=== PATIENT | female | born 1985 | race Caucasian/White ===

== ENCOUNTER 2019-06-08 21:19 | Emergency (ER) | payer OTHER ==
--- OUTSIDE RECORDS SUMMARY | 2019-06-08 21:33 | XMS REPORT | Continuity of Care Document ---
:1985 External Reference #:[id number] Author Name Jadyn Lyons M.D. Address [address] [place] [address], [address] [place] [address] Care Team Providers Name Role Phone Allegra Chadwick DO - Family Medicine Care Team Information Contracts Administrator [phone] Problems Active Problems Provider Date Mixed bipolar I disorder in partial remission Mahogany Mcdonough MD Onset: 2018 Bipolar disorder Mahogany Mcdonough MD Onset: 03/06/2019 Social History Type Date Description Comments Sex Unknown ETOH Use Rarely consumes alcohol Tobacco Use Start: Unknown Patient is a current smoker, smokes every day Recreational Drug Use Denies Drug Use Tobacco Use Start: Unknown Patient is a current One pack per day for smoker, smokes every day 16 years Smoking Status Reviewed: 02/06/19 Patient is a current One pack per day for smoker, smokes every day 16 years Allergies, Adverse Reactions, Alerts Active Allergies Reaction Severity Comments Date Wellbutrin hallucinations Severe 02/06/2019 Inactive Allergies NKDA 02/06/2019 Medications Active Medications SIG Qnty Indications Ordering Date Provider Cyclobenzaprine HCL 1 by mouth three 60tabs M65.4 Jadyn Lyons, 2019 10mg times a day as M.D. Tablets needed pain do not drive Medrol take 5tab po day 21tabs CHAPARRO Weeks 05/08/2019 4mg Tablets #1/#2 followed by 4tab day 3;then 3tab po day 4;and continue to decrease daily dose by 1tab until gone Quetiapine Fumarate 1 tabs by mouth 30tabs Mahogany Mcdonough MD 03/06/2019 100mg every night Tablets Venlafaxine HCL ER 1 by mouth every 90caps Mahogany Mcdonough MD 02/06/2019 150mg day Caps ER 24HR Omeprazole 1 by mouth every 90caps K21.9 Allegra Chadwick, 02/06/[address] arslan DO Paragard Intrauterine Allegra Chadwick, 02/06/2019 Copper Contraceptive DO T380a T380a IUD Vitamin D-1000 Maximum 1 by mouth every Unknown Strength day 25mcg (1000 Ut) Tablets Iron 1 by mouth bid Unknown 325(65Fe) mg Tablets Vitamin C 1 by mouth bid Unknown 500mg Chewtabs Vitamin B Complex 1 by mouth every Unknown Tablets day History Medications Quetiapine Fumarate take 4 tabs at 30tabs Mahogany Mcdonough MD 02/06/2019 - night for bipolar 03/06/2019 25mg Tablets disorder Medications Administered in Office Medication SIG Qnty Indications Ordering Provider Date Injection Dexamethasone Sodium Bharathi Montanez, DO 04/12/2019 Phosphate, 1 MG Injection Injection Dexamethasone Sodium Bharathi Montanez, DO 04/12/2019 Phosphate, 1 MG Injection Psychiatric Diag Eval Mahogany Mcdonough MD 03/06/2019 W/Medical Service Injection Immunizations CPT Code Status Date Vaccine Lot # [id number] Given 02/06/2019 Influenza Virus Vaccine, Quad, Preservative Free 6mo 24pp4 & up Vital Signs Date Vital Result Comment 05/12/2019 8:15am Weight 242.00 lb Weight 109.771 kg BMI (Body Mass Index) 40.3 kg/m2 Heart Rate 92 /min Body Temperature 98.0 F Respiratory Rate 15 /min Pain Level 10 Height 65 inches 5'5" Height in cm's 165.1 cm O2 % BldC Oximetry 98 % 04/12/2019 9:31am Heart Rate 119 /min Pain Level 4 O2 % BldC Oximetry 98 % Results Test Acquired Date Facility Test Result H/L Range Note Xray 05/12/2019 [facility] Spine, Cervical, <pending> [address] [place] [address] [phone] Hand Min 3 Views, RT <pending> Comprehensive Panel 03/29/2019 [facility] Sodium 139 mmol/L 136-[address] [place] [address] [phone] Potassium 4.6 mmol/L 3.5-5.2 Chloride 103 mmol/L 100-108 Co2 26 mmol/L 21-32 Glucose 74 mg/dL 70-100 BUN 9 mg/dL 7-21 Creatinine 0.6 mg/dL 0.6-1.3 1 Calcium 9.8 mg/dL 8.5-10.8 GFR >60 T Bili 0.3 mg/dL 0.0-1.2 T Protein 7.7 gm/dL 6.4-8.2 Albumin 4.5 gm/dL 3.4-4.8 Alk Phos 91 U/L 40-150 Alt (SGPT) 68 U/L High 0-55 Ast (Sgot) 37 U/L 5-37 Lipid Panel 03/29/2019 [facility] Cholesterol 159 mg/dL 120-[address] [place] [phone] Triglycerides 210 mg/dL High 0-149 HDL Cholesterol 40 mg/dL 40-60 Chol/HDL Ratio 4.0 <=4.4 2 LDL Direct 94 mg/dL 0-99 VLDL Calculated 42 Xray 03/13/2019 [facility] Hand Min 3 Views, <pending> [address] [place] [address] [phone] CBC W/No 02/06/2019 [facility] WBC 6.7 K/uL 4.8-10.[address] [place] [phone] RBC 4.65 M/uL 4.20-5.40 Hemoglobin 14.0 gm/dL 12.0-16.0 Hematocrit 40.5 % 36.0-48.0 MCV 87.1 fL 80.0-100.0 MCHC 34.5 % 30.0-36.5 MCH 30.1 pg 27.0-34.0 RDW 12.7 % 11.0-15.0 Platelet 212 K/uL 130-450 MPV 9.5 fL 6.0-12.0 Comprehensive Panel 02/06/2019 [facility] Sodium 141 mmol/L 136-[address] [place] [phone] Potassium 4.5 mmol/L 3.5-5.2 Chloride 104 mmol/L 100-108 Co2 26 mmol/L 21-32 Glucose 77 mg/dL 70-100 BUN 12 mg/dL 7-21 Creatinine 0.7 mg/dL 0.6-1.3 3 Calcium 10.0 mg/dL 8.5-10.8 GFR >60 T Bili 0.2 mg/dL 0.0-1.2 T Protein 7.9 gm/dL 6.4-8.2 Albumin 4.6 gm/dL 3.4-4.8 Alk Phos 95 U/L 40-150 Alt (SGPT) 89 U/L High 0-55 Ast (Sgot) 45 U/L High 5-37 Lipid Panel 02/06/2019 [facility] Cholesterol 179 mg/dL 120-200 [address] [place] [address] [phone] Triglycerides 320 mg/dL High 0-149 HDL Cholesterol 39 mg/dL Low 40-60 Chol/HDL Ratio 4.6 High <=4.4 4 LDL Direct 104 mg/dL High 0-99 VLDL Calculated 64 1 Normal Kidney Function or Mild Disease - GFR >OR= 60 Chronic Kidney Disease - GFR 15-59 Renal Failure - GFR < 15 GFR not calculated on patients under 18 years of age. 2 Cholesterol/HDL Ratio Interpretation Risk : 1/2 Avg Avg 2x Avg 3x Avg Male : 3.43 4.97 9.50 23.99 Female : 3.27 4.44 7.05 11.04 3 Normal Kidney Function or Mild Disease - GFR >OR= 60 Chronic Kidney Disease - GFR 15-59 Renal Failure - GFR < 15 GFR not calculated on patients under 18 years of age. 4 Cholesterol/HDL Ratio Interpretation Risk : 1/2 Avg Avg 2x Avg 3x Avg Male : 3.43 4.97 9.50 23.99 Female : 3.27 4.44 7.05 11.04 Procedures Date Code Description Status 05/12/2019 58483 X-Ray Hand Three Views Completed 05/12/2019 37809 X-Ray Spine Cervical Ap & Lateral Completed 04/12/201995524 Arthrocentesis Intermediate Joint/Bursa/Ganglion Cys Completed Inj/Drain 04/12/201964283 Inject Tendon/Ligament/Cyst Completed 03/13/2019 22371 X-Ray Hand Three Views Completed 03/06/2019 38607 Psychiatric Diag Eval W/Medical Service Completed Medical Devices Description No Information Available Encounters Type Date Location Provider Dx Diagnosis Office Visit 05/08/2019 Mirta Valenzuela M65.4 Radial styloid 1:30p Specialists DO Tarik tenosynovitis [de Quervain] M65.312 Trigger thumb, left thumb Office Visit 04/12/2019 Mirta Valenzuela M65.4 Radial styloid 9:20a Orthopaedic DO Tarik tenosynovitis [de Specialists Quervain] M65.312 Trigger thumb, left thumb M25.532 Pain in left wrist M25.542 Pain in joints of left hand Office Visit 03/29/2019 11:10a Mirta Allegra Emery F31.9 Bipolar disorder, Care M, DO unspecified R74.0 Nonspec elev of levels of transamns & lactic acid dehydrgnse E78.5 Hyperlipidemia, unspecified M65.4 Radial styloid tenosynovitis [de Quervain] M65.312 Trigger thumb, left thumb Office Visit 03/13/2019 8:00a Mirta Valenzuela M65.312 Trigger Specialists DO Tarik thumb, left thumb M65.4 Radial styloid tenosynovitis [de Quervain] Office Visit 02/27/2019 11:45a Mirta Allegra Emery M65.4 Radial styloid Care M, tenosynovitis [de Quervain] H00.14 Chalazion left upper eyelid E78.5 Hyperlipidemia, unspecified Office Visit 02/06/2019 1:00p Mirta Allegra Emery F31.76 Bipolar disorder, Care M, DO in full remis, most recent episode depress Z23 Encounter for immunization Z72.0 Tobacco use M65.4 Radial styloid tenosynovitis [de Quervain] Assessments Date Code Description Provider 05/12/2019 M65.4 Radial styloid tenosynovitis [de Quervain] Jadyn Lyons M.D. 05/12/2019 M65.312 Trigger thumb, left thumb Jadyn Lyons M.D. 05/12/2019 M54.12 Radiculopathy, cervical region Jadyn Lyons M.D. 05/08/2019 M65.4 Radial styloid tenosynovitis [de Quervain] Bharathi Montanez DO 05/08/2019 M65.312 Trigger thumb, left thumb Bharathi Montanez, DO 04/12/2019 M65.4 Radial styloid tenosynovitis [de Quervain] Bharathi Montanez, DO 04/12/2019 M65.312 Trigger thumb, left thumb Bharathi Nicolas Montanez, DO 04/12/2019 M25.532 Pain in left wrist Bharathi Nicolas Montanez, DO 04/12/2019 M25.542 Pain in joints of left hand Bharathi Montanez, DO 03/29/2019 E78.5 Hyperlipidemia, unspecified Apc and Endo Draw 03/29/2019 F31.9 Bipolar disorder, unspecified Allegra Chadwick, DO 03/29/2019 R74.0 Nonspecific elevation of levels of Allegra Chadwick, DO transaminase and lactic acid dehydrogenase [LDH] 03/29/2019 R74.0 Nonspecific elevation of levels of Apc and Endo Draw transaminase and lactic acid dehydrogenase [LDH] 03/29/2019 E78.5 Hyperlipidemia, unspecified Allegra Chadwick, DO 03/29/2019 M65.4 Radial styloid tenosynovitis [de Quervain] Allegra Chadwick , DO 03/29/2019 F31.9 Bipolar disorder, unspecified Apc and Endo Draw 03/29/2019 M65.312 Trigger thumb, left thumb Allegra Chadwick, DO 03/13/2019 M65.312 Trigger thumb, left thumb Bharathi Montanez, DO 03/13/2019 M65.4 Radial styloid tenosynovitis [de Quervain] Bharathi Montanez, DO 03/06/2019 F31.9 Bipolar disorder, unspecified Mahogany Mcdonough MD 02/27/2019 M65.4 Radial styloid tenosynovitis [de Quervain] Allegra Chadwick , DO 02/27/2019 H00.14 Chalazion left upper eyelid Allegra Chadwick, DO 02/27/2019 E78.5 Hyperlipidemia, unspecified Allegra Chadwick, DO 02/06/2019 F31.76 Bipolar disorder, in full remission, most Apc and Endo Draw recent episode depressed 02/06/2019 F31.76 Bipolar disorder, in full remission, most Allegra Chadwick , DO recent episode depressed 02/06/2019 Z23 Encounter for immunization Allegra Chadwick DO 02/06/2019 Z72.0 Tobacco use Allegra Chadwick DO 02/06/2019 K21.9 Gastro-esophageal reflux disease without Apc and Endo Draw esophagitis 02/06/2019 M65.4 Radial styloid tenosynovitis [de Quervain] Allegra Chadwick DO 02/06/2019 M65.4 Radial styloid tenosynovitis [de Quervain] Apc and Endo Draw Plan of Treatment Future Appointment(s):09/29/2019 1:30 pm - Allegra Chadwick DO at [facility] Care Functional Status Description No Information Available Mental Status Description No Information Available Referrals Refer to Reason for Referral Status Appt Date Psychiatric Wellness Care [facility] Bipolar disorder Closed [address] [place] [address] [phone] Bharathi Montanez DO tenosynovitis Scheduled 03/13/2019 [address], [address] [place] [address] [phone] Mahogany Mcdonough MD Bipolar disorder Scheduled 03/01/2019 [address] [facility], [address] [place] [address] [phone]
--- OUTSIDE RECORDS SUMMARY | 2019-06-08 21:33 | XMS REPORT | Continuity of Care Document ---
:1985 Author Organization [facility] Support Name Relationship Address Phone DIONICIO VICK significant other [address] [facility] [place] [address] Allergies and Intolerances No Known Allergies Medications RxNorm Medication Dose Route Instructions Start Date End Date Status 3863041 Acetaminophen 325 MG 1 tab oral orally every 6 05/07/2019 Active / Oxycodone hours as needed. Hydrochloride 5 MG (as needed for Oral Tablet pain; MDD= 4 tablets) Medications At Time Of Discharge RxNorm Medication Dose Route Instructions Start Date End Date Status 5035035 Acetaminophen 325 MG 1 tab oral orally every 6 05/07/2019 Active / Oxycodone hours as needed. Hydrochloride 5 MG (as needed for Oral Tablet pain; MDD= 4 tablets) Problems No Data in the system Procedures No data in the system Results Radiology Results Order: MRI CERVICAL SPINE W/O CONTRASTExam Completion Date:05/27/2019 07: 7:48 AM MR CERVICAL SPINE WITHOUT CONTRAST CLINICAL INFORMATION: -- Cervical radiculopathy pain in both hands after carpal tunnel surgery. Pain radiates into the arms. COMPARISON: None. TECHNIQUE: Multiplanar multi-sequence MR imaging of the cervical spine was performed without intravenous contrast. FINDINGS: There is mild decrease in intervertebral body disc heightand osteophyte formation. No compression deformity. Straightening of the without spondylolisthesis. Bone marrow signal appears normal. The cervical spinal cord demonstrates normal caliber and signal. Visualized aspects of the posterior fossa appear normal. Prevertebral and paravertebral soft tissues appear normal. C2-C3: No focal disc herniation, spinal canal stenosis, or neural foraminal narrowing. C3-C4 : No focal disc herniation or spinal canal stenosis. Minimal bilateral uncovertebral jointhypertrophy resulting in minimal LEFT and no significant RIGHT neural foraminal narrowing. C4-C5:No focal disc herniation or spinal canal stenosis. Minimal bilateral uncovertebral joint hypertrophyresulting in minimal LEFT and no significant RIGHT neural foraminal narrowing. C5-C6: Minimal broad-based posterior disc bulge eccentric to the LEFT. Mild bilateral uncovertebral joint hypertrophy. The spinal canal is lower limits of normal in size. No significant neural foraminal narrowing. C6-C7: No focal disc herniation or spinal canal stenosis. The spinal canal is lower limits of normal in size. No significant neural foraminal narrowing. C7-T1: No focal disc herniation, spinal canal stenosis, or neural foraminal narrowing. The T1-T2 level is only partially imaged in sagittal plane and not fully evaluated, although it appears within normal limits. IMPRESSION: Minimal multilevel cervical spondylosis, as described in detail above. No focal disc herniation or spinal canalstenosis. Minimal LEFT neural foraminal narrowing at C3-4 and C4-5. The cervical and upper thoracic spinal cord is normal in signal intensity and caliber. END OF IMPRESSION [facility] submits Radiology results to [facility] and [facility] then provides those same results to [facility]. All results are available to [facility] and [facility] provider portal users. [facility] DICOM images are available to the [facility] provider portal users only. [facility] DICOM images are not available to the [facility] provider portal users. There is no current [facility] cross-[facility] functionality allowing images to be available through the [facility] to [facility] connectivity. Electronically signed By: Conner Cruz M.D. Read By: CONNER CRUZ Date: 05/28/2019 12:10 Social History Code Code System Social History Observation Description Dates Observed 126792649 SNOMED CT Current Smoking Status Never smoker UNK AdministrativeGender Sex Assigned At Unknown Vital Signs No data in the system Goals Section No data in the system Health Concerns No data in the systemEncounter Diagnosis Date Code Code System Diagnosis Status M50.11 ICD10 CERV DISC D/O RADICULOPATHY HIGH CE Active Advance Directives *RHIO - CONSENT IS YES Directive Type Effective Date Medical Equipment Technician Notes Supporting Document Name Address Phone No Directive Type 03/29/2019 9:52:42 Not Specified Not Specified Not Specified None No specified AM Encounters Encounter Diagnosis Location Date CERV DISC D/O RADICULOPATHY HIGH CE [facility] 05/27/2019 Family History Family history not obtained Functional Status No data in the system Immunizations No data in the system Medical Equipment No data in the system Mental Status No data in the system Assessment and Plan Assessments No data in the systemPlan Of Treatment No data in the systemPending Tests Test Start Date MRI ABDOMEN WITH - W/O CONTRAST 05/27/2019 07:58 Hospital Discharge Instructions No data in the system Reason for Visit Reason for Visit MRI
--- OUTSIDE RECORDS SUMMARY | 2019-06-08 21:33 | XMS REPORT | Continuity of Care Document ---
:1985 External Reference #:[id number] Author Name Jadyn Lyons M.D. Address [address] [place] [address], [address] [place] [address] Care Team Providers Name Role Phone Allegra Chadwick DO - Family Medicine Care Team Information Erp Developer [phone] Problems Active Problems Provider Date Mixed bipolar [...] CPT Code Status Date Vaccine Lot # [id number] Given 02/06/2019 Influenza Virus Vaccine, Quad, Preservative [...] Test Result H/L Range Note Xray 05/12/2019 [facility] Spine, Cervical, <pending> [address] [place] [address] [phone] Hand Min 3 Views, RT <pending> Comprehensive Panel 03/29/2019 [facility] Sodium 139 mmol/L 136-[address] [place] [address] [phone] Potassium 4.6 mmol/L 3.5-5.2 Chloride 103 mmol/L [...] (Sgot) 37 U/L 5-37 Lipid Panel 03/29/2019 [facility] Cholesterol 159 mg/dL 120-[address] [place] [phone] Triglycerides 210 mg/dL High 0-149 HDL Cholesterol 40 mg/dL 40-60 Chol/HDL Ratio 4.0 <=4.4 2 LDL Direct 94 mg/dL 0-99 VLDL Calculated 42 Xray 03/13/2019 [facility] Hand Min 3 Views, <pending> [address] [place] [address] [phone] CBC W/No 02/06/2019 [facility] WBC 6.7 K/uL 4.8-10.[address] [place] [phone] RBC 4.65 M/uL 4.20-5.40 Hemoglobin 14.0 gm/dL 12.0-16.0 Hematocrit 40.5 % 36.0-48.0 MCV 87.1 fL 80.0-100.0 MCHC 34.5 % 30.0-36.5 MCH 30.1 pg 27.0-34.0 RDW 12.7 % 11.0-15.0 Platelet 212 K/uL 130-450 MPV 9.5 fL 6.0-12.0 Comprehensive Panel 02/06/2019 [facility] Sodium 141 mmol/L 136-[address] [place] [address] [phone] Potassium 4.5 mmol/L 3.5-5.2 Chloride 104 mmol/L [...] 45 U/L High 5-37 Lipid Panel 02/06/2019 [facility] Cholesterol 179 mg/dL 120-200 [address] [place] [address] [phone] Triglycerides 320 mg/dL High 0-149 HDL Cholesterol [...] 11.04 Procedures Date Code Description Status 05/12/2019 80064 X-Ray Hand Three Views Completed 05/12/2019 72454 X-Ray Spine Cervical Ap & Lateral Completed 04/12/201962273 Arthrocentesis Intermediate Joint/Bursa/Ganglion Cys Completed Inj/Drain 04/12/201974291 Inject Tendon/Ligament/Cyst Completed 03/13/2019 25527 X-Ray Hand Three Views Completed 03/06/2019 77661 Psychiatric Diag Eval W/Medical Service Completed Medical Devices Description No Information Available Encounters Type Date Location Provider Dx Diagnosis Office Visit 05/12/2019 [facility] Jadyn Lyons M65.4 Radial styloid 8:00a Specialists Bj tenosynovitis [de Quervain] M65.312 Trigger thumb, left thumb M54.12 Radiculopathy, cervical region Office Visit 05/08/2019 Mirta Valenzuela M65.4 Radial styloid 1:30p Orthopa[facility] Tarik, DO tenosynovitis [de Specialists Quervain] M65.312 Trigger thumb, left thumb Office Visit 04/12/2019 Mirta Valenzuela M65.4 Radial styloid 9:20a Orthopaedic Valentino, DO tenosynovitis [de Specialists Quervain] M65.312 Trigger thumb, left thumb M25.532 Pain in left wrist M25.542 Pain in joints of left hand Office Visit 03/29/2019 11:10a Allegra Urbina F31.9 Bipolar disorder, Care M, DO unspecified R74.0 Nonspec elev of levels of transamns & lactic acid dehydrgnse E78.5 Hyperlipidemia, unspecified M65.4 Radial styloid tenosynovitis [de Quervain] M65.312 Trigger thumb, left thumb Office Visit 03/13/2019 8:00a [facility] Bharathi Valenzuela M65.312 Trigger Specialists Tarik, thumb, left thumb M65.4 Radial styloid tenosynovitis [de Quervain] Office Visit 02/27/2019 11:45a Allegra Urbina M65.4 Radial styloid Care M, tenosynovitis [de Quervain] H00.14 Chalazion left upper eyelid E78.5 Hyperlipidemia, unspecified Office Visit 02/06/2019 1:00p [facility] Allegra Emery F31.76 Bipolar disorder, Care M, [...] styloid tenosynovitis [de Quervain] Bharathi Montanez, DO 05/08/2019 M65.312 Trigger thumb, left thumb Bharathi Montanez, DO 04/12/2019 M65.4 Radial styloid tenosynovitis [de Quervain] Bharathi Montanez, DO 04/12/2019 M65.312 Trigger thumb, left thumb Bharathi Montanez, DO 04/12/2019 M25.532 Pain in left wrist Bharathi Montanez, DO 04/12/2019 M25.542 Pain in joints [...] DO 02/27/2019 E78.5 Hyperlipidemia, unspecified Allegra Chadwick, 02/06/2019 F31.76 Bipolar disorder, in full remission, most Apc and Endo Draw recent episode depressed 02/06/2019 F31.76 Bipolar disorder, in full remission, most Allegra Chadwick DO recent episode depressed 02/06/2019 Z23 Encounter for immunization Allegra Chadwick, 02/06/2019 Z72.0 Tobacco use Allegra Chadwick, 02/06/2019 K21.9 Gastro-esophageal reflux disease without Apc and Endo Draw esophagitis 02/06/2019 M65.4 Radial styloid tenosynovitis [de Quervain] Allegra Chadwick DO 02/06/2019 M65.4 Radial styloid tenosynovitis [de Quervain] Apc and Endo Draw Plan of Treatment Future Appointment(s):09/29/2019 1:30 pm - Allegra Chadwick DO at [facility] Care Functional Status Description No Information Available Mental Status Description No Information Available Referrals Refer to Dr Reason for Referral Status Appt Date Psychiatric Wellness Care [facility] Bipolar disorder Closed [address] [place] [address] [phone] Bharathi Montanez DO tenosynovitis Scheduled 03/13/2019 [address] [facility], [address] [place] [address] [phone] Mahogany Mcdonough MD Bipolar disorder Scheduled 03/01/2019 [address] [facility], [address] [place] [address] [phone]
--- OUTSIDE RECORDS SUMMARY | 2019-06-08 21:33 | XMS REPORT | Continuity of Care Document ---
:1985 Author Organization [facility] Support Name Relationship Address Phone DIONICIO VICK significant other [address] [facility] [place] [address] Allergies and Intolerances No Known Allergies Medications RxNorm Medication Dose Route Instructions Start Date End Date Status 5577219 Acetaminophen 325 MG 1 tab oral orally every 6 05/07/2019 Active / Oxycodone hours as needed. Hydrochloride 5 MG (as needed for Oral Tablet pain; MDD= 4 tablets) Medications At Time Of Discharge RxNorm Medication Dose Route Instructions Start Date End Date Status 9811185 Acetaminophen 325 MG 1 tab oral orally every 6 05/07/2019 Active / Oxycodone hours as needed. Hydrochloride 5 MG (as needed for Oral Tablet pain; MDD= 4 tablets) Problems No Data in the system Procedures No data in the system Results Laboratory Results Order: RHEUMATOID FACTOR Specimen Source: Body Site: Legend: (G,H) = High, (GG,HH,CH,#H) = Above High Threshold, (#,L) = Low, (##,CL,#L,LL) = Below Low Threshold, (C,CC,CA,#A,A) = Abnormal LOINC Test Result Flag Range Units Date 1RHEUMATOID FACTOR NEGATIVE NEGATIVE 05/12/2019 09:45 1Methodology: Latex Agglutination Performing Lab Footnotes:[facility] - [id number] - [address] [place] [address] [place]LE ROSS Reference Laboratory Results Order: JUANA - Antinuclear Antibodies, IFA(3 Days to Results) Specimen Source: Body Site: LOINC Code Test Result Flag Range Units Date 5048-4 1Nuclear Ab Negative 05/12/2019 9:45:00 AM Note: Negative <1:80 Borderline 1:80 Positive >1:80 Performing Lab Footnotes:[facility] [place] - [address] [facility] [place] [id number] LILLIAM MENDOSAYES1 Order: HLA B27 [SO] Specimen Source: Body Site: LOINC Code Test Result Flag Range Units Date 68022-6 1HLA-B27 Negative 05/12/2019 9:45:00 AM Note: HLA-B*27 Negative B27 allele interpretation for all loci based on IMGT/HLA database version 3.35 This test was developed and its performance characteristics determined by [facility]. It has not been cleared or approved by the Food and Drug Administration. [facility] CLIA ID Number [id number] . This test was performed using PCR (Polymerase Chain Reaction)/SSOP (Sequence Specific Oligonucleotide Probes) technique. SBT (Sequence Based Typing) and/or SSP (Sequence Specific Primers) may be used as supplemental methods when necessary. Please contact HLA Customer Service at if you have any questions. . Director of HLA Laboratory Dr Jon Doty, PhD Performing Lab Footnotes:[facility] [place] [facility] [address] [facility] [place] [id number] JON RAMOS Order: LYME PCR (csf, bodyfluid, blood) [SO] Specimen Source: Body Site : LOINC Code Test Result Flag Range Units Date 4991-6 1Borrelia burgdorferi Negative Negative 05/12/2019 DNA 9:45:00 AM Note: No B. burgdorferi DNA Detected. . A negative PCR result for Borrelia burgdorferi on a blood sample does not eliminate the possibility of Lyme disease. CDC recommends that two-tiered serological testing in conjunction with clinical evaluation be used as the primary method of diagnosis. . This test was developed and its performance characteristics determined by [facility]. It has not been cleared or approved by the Food and Drug Administration. The FDA has determined that such clearance or approval is not necessary. Performing Lab Footnotes:[facility] [place] - [address] [place], [place] [id number] HENRIETTA CANTU1 Social History Code Code System Social History Observation Description Dates Observed 035167263 SNOMED CT Current Smoking Status Never smoker UNK AdministrativeGender Sex Assigned At Unknown Vital Signs No data in the system Goals Section No data in the system Health Concerns No data in the systemEncounter Diagnosis Date Code Code System Diagnosis Status M65.4 ICD10 RADIAL STYLOID TENOSYNOVITIS Active Advance Directives *RHIO - CONSENT IS YES Directive Type Effective Date Manager Cosmetic Notes Supporting Document Name Address Phone No Directive Type 03/29/2019 9:52:42 Not Specified Not Specified Not Specified None No specified AM Encounters Encounter Diagnosis Location Date RADIAL STYLOID TENOSYNOVITIS [facility] 05/12/2019 Family History Family history not obtained Functional Status No data in the system Immunizations No data in the system Medical Equipment No data in the system Mental Status No data in the system Assessment and Plan Assessments No data in the systemPlan Of Treatment No data in the systemPending Tests No data in the system Hospital Discharge Instructions No data in the system Reason for Visit No data in the system
--- OUTSIDE RECORDS SUMMARY | 2019-06-08 21:33 | XMS REPORT | Continuity of Care Document ---
:1985 External Reference #:[id number] Author Name Bharathi Montanez DO Address [address] [facility], [address] [place] [address] Care Team Providers Name Role Phone Allegra Chadwick DO - Family Medicine Care Team Information Process Treater Problems Active Problems Provider Date Mixed bipolar [...] Medications Active Medications SIG Qnty Indications Ordering Provider Date Quetiapine Fumarate 1 tabs by mouth 30tabs Mahogany Mcdonough MD 03/06/2019 100mg every night Tablets Venlafaxine HCL ER 1 by mouth 90caps Mahogany Mcdonough MD 02/06/2019 150mg every day Caps ER 24HR Omeprazole 1 by mouth 90caps K21.9 Allegra Chadwick, 02/06/[address] every day DO Paragard Intrauterine Allegra Chadwick, 02/06/2019 Copper Contraceptive DO T380a T380a IUD Vitamin D-1000 Maximum 1 by mouth Unknown Strength every day 25mcg (1000 Ut) Tablets Iron 1 by mouth bid Unknown 325(65Fe) mg Tablets Vitamin C 1 by mouth bid Unknown 500mg Chewtabs Vitamin B Complex 1 by mouth Unknown Tablets every day History Medications Quetiapine Fumarate take 4 tabs at 30tabs aMhogany Mcdonough MD 02/06/2019 - night for bipolar 03/06/2019 25mg Tablets disorder Medications Administered in Office Medication SIG Qnty Indications Ordering Provider Date Psychiatric Diag Eval W/Medical Mahogany Mcdonough MD 03/06/2019 Service Injection Immunizations CPT Code Status Date Vaccine Lot # [id number] Given 02/06/2019 Influenza Virus Vaccine, Quad, Preservative Free 6mo 24pp4 & up Vital Signs Date Vital Result Comment 04/12/2019 9:31am Heart Rate 119 /min Pain Level 4 O2 % BldC Oximetry 98 % 03/29/2019 11:23am Weight 242.38 lb Weight 109.941 kg BMI (Body Mass Index) 40.3 kg/m2 BP Systolic 124 mmHg BP Diastolic 80 mmHg Heart Rate 103 /min Body Temperature 96.7 F Respiratory Rate 18 /min Height 65 inches 5'5" Height in cm's 165.1 cm O2 % BldC Oximetry 96 % Results Test Acquired Date Facility Test Result H/L Range Note Comprehensive Panel 03/29/2019 [facility] Sodium 139 mmol/L 136-[address] [place] [id number] [phone] Potassium 4.6 mmol/L 3.5-5.2 Chloride 103 mmol/L [...] (Sgot) 37 U/L 5-37 Lipid Panel 03/29/2019 [facility] Cholesterol 159 mg/dL 120-200 [address] [place] [address] [phone] Triglycerides 210 mg/dL High 0-149 HDL Cholesterol 40 mg/dL 40-60 Chol/HDL Ratio 4.0 <=4.4 2 LDL Direct 94 mg/dL 0-99 VLDL Calculated 42 Xray 03/13/2019 [facility] Hand Min 3 Views, <pending> [address] [place] [address] [phone] CBC W/No 02/06/2019 [facility] WBC 6.7 K/uL 4.8-10.8 Diff [address] [place], [place] [id number] [phone] RBC 4.65 M/uL 4.20-5.40 Hemoglobin 14.0 gm/dL 12.0-16.0 Hematocrit 40.5 % 36.0-48.0 MCV 87.1 fL 80.0-100.0 MCHC 34.5 % 30.0-36.5 MCH 30.1 pg 27.0-34.0 RDW 12.7 % 11.0-15.0 Platelet 212 K/uL 130-450 MPV 9.5 fL 6.0-12.0 Comprehensive Panel 02/06/2019 [facility] Sodium 141 mmol/L 136-145 [address] [place] [address] [phone] Potassium 4.5 mmol/L 3.5-5.2 Chloride 104 mmol/L [...] 45 U/L High 5-37 Lipid Panel 02/06/2019 [facility] Cholesterol 179 mg/dL 120-[address] [place] [address] [phone] Triglycerides 320 mg/dL High 0-149 HDL Cholesterol [...] 7.05 11.04 Procedures Date Code Description Status 04/12/2019 46846 Arthrocentesis Intermediate Joint/Bursa/Ganglion Cys Completed Inj/Drain 03/13/2019 64919 X-Ray Hand Three Views Completed 03/06/2019 35673 Psychiatric Diag Eval W/Medical Service Completed Medical Devices Description No Information Available Encounters Type Date Location Provider Dx Diagnosis Office Visit 03/29/2019 Allegra Urbina, F31.9 Bipolar disorder, 11:10a Care DO unspecified R74.0 Nonspec elev of levels of transamns & lactic acid dehydrgnse E78.5 Hyperlipidemia, unspecified M65.4 Radial styloid tenosynovitis [de Quervain] M65.312 Trigger thumb, left thumb Office Visit 03/13/2019 8:00a [facility] Bharathi Valenzuela M65.312 [facility] DO Tarik thumb, left thumb M65.4 Radial styloid tenosynovitis [de Quervain] Office Visit 02/27/2019 11:45a Allegra Urbina M65.4 Radial styloid Care DO Woody tenosynovitis [de Quervain] H00.14 Chalazion left upper eyelid E78.5 Hyperlipidemia, unspecified Office Visit 02/06/2019 1:00p Allegra Urbina F31.76 Bipolar disorder, Care Woody DO in full remis, most recent episode depress Z23 Encounter for immunization Z72.0 Tobacco use M65.4 Radial styloid tenosynovitis [de Quervain] Assessments Date Code Description Provider 04/12/2019 M65.4 Radial styloid tenosynovitis [de Quervain] Bharathi Montanez, DO 04/12/2019 M65.312 Trigger thumb, left thumb Bharathi Montanez, DO 03/29/2019 E78.5 Hyperlipidemia, unspecified [...] [de Quervain] Allegra Chadwick , DO 03/29/2019 M65.312 Trigger thumb, left thumb Allegra Chadwick, DO 03/29/2019 F31.9 Bipolar disorder, unspecified Apc and Endo Draw 03/13/2019 M65.312 Trigger thumb, left thumb Bharathi [...] 02/06/2019 Z23 Encounter for immunization Allegra Chadwick, DO 02/06/2019 Z72.0 Tobacco use Allegra Chadwick DO 02/06/2019 K21.9 Gastro-esophageal reflux disease without Apc and Endo Draw esophagitis 02/06/2019 M65.4 Radial styloid tenosynovitis [de Quervain] Allegra Chadwick DO 02/06/2019 M65.4 Radial styloid tenosynovitis [de Quervain] Apc and Endo Draw Plan of Treatment Future Appointment(s):09/29/2019 1:30 pm - Allegra Chadwick DO at [facility] Care Functional Status Description No Information Available Mental Status Description No Information Available Referrals Refer to Reason for Referral Status Appt Date [facility] Bipolar disorder Closed [address] [place] [phone] Bharathi Montanez DO tenosynovitis Scheduled 03/13/2019 [address] [facility], [address] [place] [address] [phone] Mahogany Mcdonough MD Bipolar disorder Scheduled 03/01/2019 [address] [facility], [address] [place] [address] [phone]
--- OUTSIDE RECORDS SUMMARY | 2019-06-08 21:33 | XMS REPORT | Continuity of Care Document ---
:1985 Author Organization [facility] Support Name Relationship Address Phone DIONICIO VICK significant other [address] [place] [address] Allergies and Intolerances No Known Allergies Medications RxNorm Medication Dose Route Instructions Start Date End Date Status 5063814 Acetaminophen 325 MG 1 tab oral orally every 6 05/07/2019 Active / Oxycodone hours as needed. Hydrochloride 5 MG (as needed for Oral Tablet pain; MDD= 4 tablets) Medications At Time Of Discharge RxNorm Medication Dose Route Instructions Start Date End Date Status 1171993 Acetaminophen 325 MG 1 tab oral orally every 6 05/07/2019 Active / Oxycodone hours as needed. Hydrochloride 5 MG (as needed for Oral Tablet pain; MDD= 4 tablets) Problems No Data in the system Procedures No data in the system Results Radiology Results Order: FINGER OR FINGERS LTExam Completion Date:05/06/2019 22: 12:02 AM CLINICAL INFORMATION: thumb -- INJURY, UNSPECIFIED COMPARISON: None.PROCEDURE: Frontal, lateral, and oblique views. FINDINGS/IMPRESSION: Flexion of the distal phalanx of thumb. No acute fracture, subluxation, or dislocation is seen. END OF IMPRESSION [facility] submits Radiology results to [facility] and [facility] then provides those same results to [facility]. All results are available to [facility] and [facility] provider portal users. [facility] DICOM images are available to the [facility] provider portal users only. [facility] DICOM images are not available to [facility] provider portal users. There is no current [facility] cross-[facility] functionality allowing images to be available through the [facility] to [facility] connectivity. Electronically signed By : Duane Grady M.D. Read By: DUANE GRADY Date: 05/07/2019 08:25 Social History Code Code System Social History Description Dates Observed Observation [id number] SNOMED CT Current Smoking Current some day Status smoker UNK AdministrativeGender Sex Assigned At Unknown Vital Signs Code Code System Vitals Value Date 8310-5 LOINC Body Temperature 98.8 [degF] 05/06/2019 8865-8 LOINC Pulse Rate 105 {beats}/min 05/06/2019 9279-1 LOINC Respiratory Rate 19 /min 05/06/2019 70587-9 LOINC O2% BldC Oximetry 99 % 05/06/2019 8480-6 LOINC BP Systolic 151 mm[Hg] 05/06/2019 8462-4 LOINC BP Diastolic 93 mm[Hg] 05/06/2019 8302-2 LOINC Height 63 [in_i] 05/06/2019 23333-4 LOINC Weight 100 kg 05/06/2019 3140-1 LOINC Body surface area Derived from formula 2.02 m2 05/06/2019 09738-7 LOINC BMI (Body Mass Index) 39 kg/m2 05/06/2019 Goals Section No data in the system Health Concerns No data in the systemEncounter Diagnosis Date Code Code System Diagnosis Status M65.4 ICD10 RADIAL STYLOID TENOSYNOVITIS Active Advance Directives *RHIO - CONSENT IS YES Directive Type Effective Date Housemaid Notes Supporting Document Name Address Phone No Directive Type 03/29/2019 9:52:42 Not Specified Not Specified Not Specified None No specified AM Encounters Encounter Diagnosis Location Date RADIAL STYLOID TENOSYNOVITIS [facility] 05/06/2019 Family History Family history not obtained Functional Status Code Functional Condition Code System Date Status Obese SNOMED CT 05/06/2019 Active Independent adls SNOMED CT 05/07/2019 Active Appears well nourished/hydrated SNOMED CT 05/06/2019 Active Immunizations No data in the system Medical Equipment No data in the system Mental Status Code Cognitive Condition Code System Date Status Moderate distress SNOMED CT 05/06/2019 Active Oriented x [address] 05/07/[address] 05/06/[address] 05/06/2019 Active No acute distress SNOMED CT 05/07/2019 Active Assessment and Plan Assessments No data in the systemPlan Of Treatment No data in the systemPending Tests No data in the system Hospital Discharge Instructions No data in the system Reason for Visit Reason for Visit Hand Injury
--- OUTSIDE RECORDS SUMMARY | 2019-06-08 21:33 | XMS REPORT | Continuity of Care Document ---
:1985 External Reference #:[id number] Author Name Jadyn Lyons M.D. 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 Cyclobenzaprine HCL 1 by mouth three 60tabs [...] 04/12/2019 Phosphate, 1 MG Injection Psychiatric Diag Hollieal Mahogany Mcdonough MD 03/06/2019 W/Medical Service Injection Immunizations CPT Code Status Date Vaccine Lot # [id number] Given 02/06/2019 Influenza Virus Vaccine, Quad, Preservative [...] Date Facility Test Result H/L Range Note Rheumatoid 05/12/2019 [facility] Rheumatoid NEGATIVE Negative Factor-RF [phone] Factor RF Methodology Methodology: Lat <SEE NOTE> 1 Laboratory test 05/12/2019 [facility] - Antinuclear Negative L 2 finding [phone] Antibodies, Ifa(3 Days Lyme PCR (csf, bodyfluid, blood) [So] Negative L Negative 3 Hla B27 [So] Negative L 4 Xray 05/12/2019 [facility] Spine, Cervical, 2 Or 3 < pending> [address] [place] [address] [phone] Hand Min 3 Views, RT <pending> Comprehensive Panel 03/29/2019 [facility] Sodium 139 mmol/L 136-145 [address] [place] [address] [phone] Potassium 4.6 mmol/L 3.5-5.2 Chloride 103 mmol/L 100-108 Co2 26 mmol/L 21-32 Glucose 74 mg/dL 70-100 BUN 9 mg/dL 7-21 Creatinine 0.6 mg/dL 0.6-1.3 5 Calcium 9.8 mg/dL 8.5-10.8 GFR >60 T Bili 0.3 mg/dL 0.0-1.2 T Protein 7.7 gm/dL 6.4-8.2 Albumin 4.5 gm/dL 3.4-4.8 Alk Phos 91 U/L 40-150 Alt (SGPT) 68 U/L High 0-55 Ast (Sgot) 37 U/L 5-37 Lipid Panel 03/29/2019 [facility] Cholesterol 159 mg/dL 120-200 [address] [place] [address] [phone] Triglycerides 210 mg/dL High 0-149 HDL Cholesterol 40 mg/dL 40-60 Chol/HDL Ratio 4.0 <=4.4 6 LDL Direct 94 mg/dL 0-99 VLDL Calculated 42 Xray 03/13/2019 [facility] Hand Min 3 Views, <pending> [address] [place], [place] [address] [phone] CBC W/No 02/06/2019 [facility] WBC 6.7 K/uL 4.8-10.8 Diff [address] [place] [address] [phone] RBC 4.65 M/uL 4.20-5.40 Hemoglobin 14.0 gm/dL 12.0-16.0 Hematocrit 40.5 % 36.0-48.0 MCV 87.1 fL 80.0-100.0 MCHC 34.5 % 30.0-36.5 MCH 30.1 pg 27.0-34.0 RDW 12.7 % 11.0-15.0 Platelet 212 K/uL 130-450 MPV 9.5 fL 6.0-12.0 Comprehensive Panel 02/06/2019 [facility] Sodium 141 mmol/L 136-145 [address] [place] [address] [phone] Potassium 4.5 mmol/L 3.5-5.2 Chloride 104 mmol/L 100-108 Co2 26 mmol/L 21-32 Glucose 77 mg/dL 70-100 BUN 12 mg/dL 7-21 Creatinine 0.7 mg/dL 0.6-1.3 7 Calcium 10.0 mg/dL 8.5-10.8 GFR >60 T Bili 0.2 mg/dL 0.0-1.2 T Protein 7.9 gm/dL 6.4-8.2 Albumin 4.6 gm/dL 3.4-4.8 Alk Phos 95 U/L 40-150 Alt (SGPT) 89 U/L High 0-55 Ast (Sgot) 45 U/L High 5-37 Lipid Panel 02/06/2019 [facility] Cholesterol 179 mg/dL 120-200 [address] [place], [place] [id number] [phone] Triglycerides 320 mg/dL High 0-149 HDL Cholesterol 39 mg/dL Low 40-60 Chol/HDL Ratio 4.6 High <=4.4 8 LDL Direct 104 mg/dL High 0-99 VLDL Calculated 64 1 Methodology: Latex Agglutination 2 Negative <1:80 Borderline 1:80 Positive >1:80 3 No B. burgdorferi DNA Detected. . A negative PCR result for Borrelia burgdorferi on a blood sample does not eliminate the possibility of Lyme disease. CDC recommends that two-tiered serological testing in conjunction with clinical evaluation be used as the primary method of diagnosis. . This test was developed and its performance characteristics determined by [facility]. It has not been cleared or approved by the Food and Drug Administration. The FDA has determined that such clearance or approval is not necessary. 4 HLA-B*27 Negative B27 allele interpretation for all loci based on IMGT/HLA database version 3.35 This test was developed and its performance characteristics determined by [facility]. It has not been cleared or approved by the Food and Drug Administration. [facility] CLIA ID Number [id number] . This test was performed using PCR (Polymerase Chain Reaction)/SSOP (Sequence Specific Oligonucleotide Probes) technique. SBT (Sequence Based Typing) and/or SSP (Sequence Specific Primers) may be used as supplemental methods when necessary. Please contact [facility] Customer Service at if you have any questions. . Director of HLA Laboratory Dr Jon Doty, PhD 5 Normal Kidney Function or Mild Disease - GFR >OR= 60 Chronic Kidney Disease - GFR 15-59 Renal Failure - GFR < 15 GFR not calculated on patients under 18 years of age. 6 Cholesterol/HDL Ratio Interpretation Risk : 1/2 Avg Avg 2x Avg 3x Avg Male : 3.43 4.97 9.50 23.99 Female : 3.27 4.44 7.05 11.04 7 Normal Kidney Function or Mild Disease - GFR >OR= 60 Chronic Kidney Disease - GFR 15-59 Renal Failure - GFR < 15 GFR not calculated on patients under 18 years of age. 8 Cholesterol/HDL Ratio Interpretation Risk : 1/2 Avg Avg 2x Avg 3x Avg Male : 3.43 4.97 9.50 23.99 Female : 3.27 4.44 7.05 11.04 Procedures Date Code Description Status 05/12/2019 36474 X-Ray Hand Three Views Completed 05/12/2019 61112 X-Ray Spine Cervical Ap & Lateral Completed 04/12/2019 81660 Arthrocentesis Intermediate Joint/Bursa/Ganglion Cys Completed Inj/Drain 04/12/2019 71642 Inject Tendon/Ligament/Cyst Completed 03/13/2019 43112 X-Ray Hand Three Views Completed 03/06/2019 97340 Psychiatric Diag Eval W/Medical Service Completed Medical Devices Description No Information Available Encounters Type Date Location Provider Dx Diagnosis Office Visit 05/12/2019 [facility] Jadyn Lyons M65.4 Radial styloid 8:00a Specialists Bj tenosynovitis [de Quervain] M65.312 Trigger thumb, left thumb M54.12 Radiculopathy, cervical region Office Visit 05/08/2019 [facility] M65.4 Radial styloid 1:30p [facility] Tarik, tenosynovitis [de Specialists Quervain] M65.312 Trigger thumb, [...] 1:00p Alleg[facility] U[facility] F31.76 Bipolar disorder, Care M, DO in full remis, most recent episode depress Z23 Encounter for immunization Z72.0 Tobacco use M65.4 Radial styloid tenosynovitis [de Quervain] Assessments Date Code Description Provider 06/08/2019 M65.4 Radial styloid tenosynovitis [de Quervain] Jadyn Lyons M.D. 06/08/2019 M54.2 Cervicalgia Jadyn Lyons M.D. 06/08/2019 S63.501A Unspecified sprain of right wrist, initial Jadyn Lyons M.D. encounter 05/12/2019 M65.4 Radial styloid tenosynovitis [de Quervain] Jadyn Lyons M.D. 05/12/2019 M65.312 Trigger thumb, left thumb Jadyn Lyons M.D. 05/12/2019 M54.12 Radiculopathy, cervical region Jadyn Lyons M.D. 05/08/2019 M65.4 Radial styloid tenosynovitis [de Quervain] Bharathi D. Tallerico, DO 05/08/2019 M65.312 Trigger thumb, left thumb [...] E78.5 Hyperlipidemia, unspecified Allegra Chadwick, DO 03/29/2019 R74.0 Nonspecific elevation of levels of Apc and Endo Draw transaminase and lactic acid dehydrogenase [LDH] 03/29/2019 M65.4 Radial styloid tenosynovitis [de Quervain] [...] and Endo Draw Plan of Treatment Future Appointment(s):06/19/2019 10:30 am - Ciarra Salter M.D. at [facility] Audyjajmqtt59/05/2020 1:30 pm - Allegra Chadwick DO at [facility] Functional Status Description No Information Available Mental Status Description No Information Available Referrals Refer to Dr Reason for Referral Status Appt Date Psychiatric Wellness Care [facility] Bipolar disorder Closed [address] [place] [address] [phone] Bharathi Montanez DO tenosynovitis Scheduled 03/13/2019 [address] [facility], [address] [place] [address] [phone] Mahogany Mcdonough MD Bipolar disorder Scheduled 03/01/2019 [address] [facility], [address] [place] [address] [phone]
--- OUTSIDE RECORDS SUMMARY | 2019-06-08 21:33 | XMS REPORT | Continuity of Care Document ---
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 Problems Provider Date Mixed bipolar [...] Medications SIG Qnty Indications Ordering Date Provider Medrol take 5tab po day 21tabs CHAPARRO [...] 90caps K21.9 Allegra Chadwick, 02/06/2019 20mg Capsules day DO Allegra Hdz, 02/06/2019 Copper Contraceptive DO T380a T380a IUD Vitamin D-1000 Maximum 1 by mouth every Unknown Strength day 25mcg (1000 Ut) Tablets Iron 1 by mouth bid Unknown 325(65Fe) mg Tablets Vitamin C 1 by mouth bid Unknown 500mg Chewtabs Vitamin B Complex 1 by mouth every Unknown day Tablets History Medications Quetiapine Fumarate take 4 tabs [...] CPT Code Status Date Vaccine Lot # 85041 Given 02/06/2019 Influenza Virus Vaccine, Quad, Preservative [...] [facility] Sodium 139 mmol/L 136-145 [address] [place] [address] [phone] Potassium 4.6 mmol/L 3.5-5.2 Chloride 103 mmol/L [...] (Sgot) 37 U/L 5-37 Lipid Panel 03/29/2019 [facility] Cholesterol 159 mg/dL 120-[address] [place] [address] [phone] Triglycerides 210 mg/dL High 0-149 HDL Cholesterol 40 mg/dL 40-60 Chol/HDL Ratio 4.0 <=4.4 2 LDL Direct 94 mg/dL 0-99 VLDL Calculated 42 Xray 03/13/2019 [facility] Hand Min 3 Views, <pending> [address] [place] [address] [phone] CBC W/No 02/06/2019 [facility] WBC 6.7 K/uL 4.8-10.[address] [place] [address] [phone] RBC 4.65 M/uL 4.20-5.40 Hemoglobin 14.0 gm/dL 12.0-16.0 Hematocrit 40.5 % 36.0-48.0 MCV 87.1 fL 80.0-100.0 MCHC 34.5 % 30.0-36.5 MCH 30.1 pg 27.0-34.0 RDW 12.7 % 11.0-15.0 Platelet 212 K/uL 130-450 MPV 9.5 fL 6.0-12.0 Comprehensive Panel 02/06/2019 [facility] Sodium 141 mmol/L 136-[address] [place] [address] [phone] Potassium 4.5 mmol/L 3.5-5.2 Chloride 104 mmol/L [...] 45 U/L High 5-37 Lipid Panel 02/06/2019 [facility] Cholesterol 179 mg/dL 120-200 [address] [place] [address] [phone] Triglycerides 320 mg/dL High 0-149 HDL Cholesterol [...] 11.04 Procedures Date Code Description Status 04/12/2019 09198 Arthrocentesis Intermediate Joint/Bursa/Ganglion Cys Completed Inj/Drain 04/12/2019 24314 Inject Tendon/Ligament/Cyst Completed 03/13/2019 08096 X-Ray Hand Three Views Completed 03/06/2019 19723 Psychiatric Diag Eval W/Medical Service Completed Medical Devices Description No Information Available Encounters Type Date Location Provider Dx Diagnosis Office Visit 05/08/2019 [facility] Valenzuela M65.4 Radial styloid 1:30p [facility] Tarik DO tenosynovitis [de Quervain] M65.312 Trigger thumb, left thumb Office Visit 04/12/2019 Mir[facility] Valenzuela M65.4 Radial styloid 9:20a [facility], DO tenosynovitis [[facility]] M65.312 Trigger thumb, left thumb M25.532 Pain in left wrist M25.542 Pain in joints of left hand Office Visit 03/29/2019 11:10a [facility] FarrukhAllegra de anda F31.9 Bipolar disorder, Care M, DO unspecified R74.0 Nonspec elev of levels of transamns & lactic acid dehydrgnse E78.5 Hyperlipidemia, unspecified M65.4 Radial styloid tenosynovitis [de Quervain] M65.312 Trigger thumb, left thumb Office Visit 03/13/2019 8:00a [facility] Bharathi Valenzuela M65.312 Trigger Specialists DO Tarik thumb, left thumb M65.4 Radial styloid tenosynovitis [de Quervain] Office Visit 02/27/2019 11:45a [facility] FarrukhAllegra de anda M65.4 Radial styloid Care DO Woody tenosynovitis [de Quervain] H00.14 Chalazion left upper eyelid E78.5 Hyperlipidemia, unspecified Office Visit 02/06/2019 1:00p [facility] MatamorosAllegra de anda F31.76 Bipolar disorder, Care M, DO in full remis, most recent episode depress Z23 Encounter for immunization Z72.0 Tobacco use M65.4 Radial styloid tenosynovitis [de Quervain] Assessments Date Code Description Provider 05/08/2019 M65.4 Radial styloid tenosynovitis [de Quervain] Bharathi Montanez, DO 05/08/2019 M65.312 Trigger thumb, left thumb Bharathi Montanez, 04/12/2019 M65.4 Radial styloid tenosynovitis [de Quervain] Bharathi Montanez, DO 04/12/2019 M65.312 Trigger thumb, left thumb Bharathi Montanez, DO 04/12/2019 M25.532 Pain in left wrist Bharathi Montanez, DO 04/12/2019 M25.542 Pain in joints of left hand Bharathi Montanez, DO 03/29/2019 E78.5 Hyperlipidemia, unspecified Apc and Endo Draw 03/29/2019 F31.9 Bipolar disorder, unspecified Allegra Chadwick, 03/29/2019 R74.0 Nonspecific elevation of levels of Allegra Chadwick DO transaminase and lactic acid dehydrogenase [LDH] [...] in full remission, most Allegra Chadwick , recent episode depressed 02/06/2019 Z23 Encounter for immunization Lidya Chadwickah Woody, 02/06/2019 Z72.0 Tobacco use Allegra Chadwick, 02/06/2019 K21.9 Gastro-esophageal reflux disease without Apc and Endo Draw esophagitis 02/06/2019 M65.4 Radial styloid tenosynovitis [de Quervain] Allegra Chadwick , 02/06/2019 M65.4 Radial styloid tenosynovitis [de Quervain] Apc and Endo Draw Plan of Treatment Future Appointment(s):05/12/2019 8:00 am - Jadyn Lyons M.D. at [facility]/05/2020 1:30 pm - Allegra Chadwick DO at [facility] Functional Status Description No Information Available Mental Status Description No Information Available Referrals Refer to Reason for Referral Status Appt Date Psychiatric Well[facility] Care [facility] Bipolar disorder Closed [address] [place] [id number] [phone] Bharathi Montanez DO tenosynovitis Scheduled 03/13/2019 [address], [address] [place] [address] [phone] Mahogany Mcdonough MD Bipolar disorder Scheduled 03/01/2019 [address] , [address] [place] [id number] [phone]
[2019-06-08] MEDS ORDERED: Gabapentin CAP(*) 100 MG PO ONE (22:29)
[2019-06-08] MEDS ORDERED: Ketorolac INJ* 30 MG/ML 1 ML VIAL IM ONE (22:29)
--- NOTE | 2019-06-08 22:35 | ED ---
Upper Extremity Pain - HPI Summary HPI Summary: 33-year-old male presents with left wrist pain for the past couple months. She she has history of carpal tunnel and had surgery on her wrists with minimal relief. She feels like her thumb has been locking. States that recently she started having pain up her left arm. States she's been having neck pain. Just had an MRI of her neck. She also has an MRIs of one of her hands on Wednesday. She states that they have done cortisone injections of the hand and these did seem to help and they are not helping anymore. They gave her prescription for gabapentin which she has not started. States she's been taking a muscle relaxer for the past couple days but it is making her very tired. She is feels out of sorts. States she's been having weakness of the left thumb. 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 She has braces on both hands that she uses. - History of Current Complaint Chief Complaint: EDExtremityUpper Stated Complaint: LEFT ARM PAIN PER PT Time Seen by Provider: 06/08/19 22:01 - Allergies/Home Medications Allergies/Adverse Reactions: Allergies Allergy/AdvReac Type Severity Reaction Status Date / Time No Known Allergies Allergy Verified 06/08/19 21:26 PMH/Surg Hx/FS Hx/Imm Hx Endocrine/Hematology History: Denies: Hx Anticoagulant Therapy Respiratory History: Denies: Hx Asthma Infectious Disease History: No Infectious Disease History: Denies: Traveled Outside the [place] in Last 30 Days - Family History Known Family History: Positive: Non-Contributory - Social History Substance Use Type: Reports: None Smoking Status (MU): Unknown if Ever Smoked Review of Systems Negative: Fever Negative: Chest Pain Negative: Shortness Of Breath Positive: Myalgia - left wrist and neck pain All Other Systems Reviewed And Are Negative: Yes Physical Exam Triage Information Reviewed: Yes Vital Signs On Initial Exam: Initial Vitals Temp Pulse Resp BP Pulse Ox 97.2 F 114 20 150/112 97 06/08/19 21:23 06/08/19 21:23 06/08/19 21:23 06/08/19 21:23 06/08/19 21:23 Vital Signs Reviewed: Yes Appearance: Positive: Well-Appearing Skin: Positive: Warm, Dry Head/Face: Positive: Normal Head/Face Inspection Eyes: Positive: Normal, Conjunctiva Clear ENT: Positive: Pharynx normal Neck: Positive: Other: - tenderness lower neck, pos spurlings Respiratory/Lung Sounds: Positive: Clear to Auscultation, Breath Sounds Present Cardiovascular: Positive: Normal, RRR Musculoskeletal: Positive: Limited @ - left thumb, Other - pos finkl[place]in, good pulses, 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 Course/Dx - Course Course Of Treatment: 33-year-old male presents with left wrist pain for the past couple months. She she has history of carpal tunnel and had surgery on her wrists with minimal relief. She feels like her thumb has been locking. States that recently she started having pain up her left arm. States she's been having neck pain. Just had an MRI of her neck. She also has an MRIs of one of her hands on Wednesday. She states that they have done cortisone injections of the hand and these did seem to help and they are not helping anymore. They gave her prescription for gabapentin which she has not started. States she's been taking a muscle relaxer for the past couple days but it is making her very tired. She is feels out of sorts. States she's been having weakness of the left thumb. 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 She has braces on both hands that she uses. On exam has positive Fadia's. Is neurovascularly intact. Tenderness over left thumb. Positive Spurling's. Tenderness over her neck. Patient is very emotional on exam. Discussed should start the gabapentin. Told to follow-up with orthopedic. Patient understands and agrees the plan. - Diagnoses Differential Diagnosis/HQI/PQRI: Positive: Fracture (Closed), Strain, Sprain Provider Diagnoses: Left wrist pain Discharge ED - Sign-Out/Discharge Documenting (check all that apply): Patient Departure - Discharge Plan Condition: Good Disposition: HOME Patient Education Materials: De Quervain Disease (ED) Referrals: Jc Alston MD [Medical Doctor] - No Primary Care Phys,NOPCP [Primary Care Provider] - Additional Instructions: take 1 tablet at night for 2 days, then increase to twice a day for 3 days, if still having symptoms go to three times a day follow up with ortho continue tyenlol or ibuprofen eveyr 6 hours for pain Return to ED if develop any new or worsening symptoms - Billing Disposition and Condition Condition: GOOD Disposition: Home
[2019-06-08 22:57] VITALS: BP 150/99
== END 2019-06-08 22:57 | disposition home or self-care (01) ==
LOC: ED 21:19
DX: M25.532 Pain in left wrist (principal); M54.2 Cervicalgia
CPT/HCPCS: 96372; 99282; A9270-GY; J1885